=== PATIENT | male | born 1940 | race Caucasian/White ===

== ENCOUNTER 2021-10-04 11:22 | Emergency (ER) | payer OTHER ==
[~2021-10-04] VITALS: Ht 167.6 cm; Wt 60.3 kg
[~2021-10-04 11:22] MED LIST: ATEN25 PO; BLOOD PRESSURE MED; FAMO20 PO; HYDACE5 PO; META800 PO
[2021-10-04 12:25] LABS: BASOPHILS ABSOLUTE AUTO 0.05 K/mm3 (0.00-0.23); BASOPHILS PERCENT AUTO 1 % (0-2); EOSINOPHILS ABSOLUTE AUTO 0.83 K/mm3 (0.00-0.68); EOSINOPHILS PERCENT AUTO 8 % (0-6); Hematocrit 37.9 % (37.0-53.0); Hemoglobin 12.6 g/dL (13.5-17.5); IMMATURE GRAN ABSOLUTE AUTO 0.03 K/mm3 (0.00-0.10); IMMATURE GRAN PERCENT AUTO 0 % (0-1); LYMPHOCYTES ABSOLUTE AUTO 2.55 K/mm3 (0.84-5.20); LYMPHOCYTES PERCENT AUTO 24 % (21-46); MONOCYTES ABSOLUTE AUTO 0.68 K/mm3 (0.16-1.47); MONOCYTES PERCENT AUTO 6 % (4-13); Mean Corpuscular HGB 32.6 pg (26.0-34.0); Mean Corpuscular HGB Conc 33.2 g/dL (31.5-36.5); Mean Corpuscular Volume 98 fL (80-100); Mean Platelet Volume 9.7 fL (9.1-12.4); NEUTROPHILS ABSOLUTE AUTO 6.52 K/mm3 (1.96-9.15); NEUTROPHILS PERCENT AUTO 61 % (41-73); Platelet Count 241 K/mm3 (150-400); RDW Coefficient Variation 15.5 % (11.7-14.2); RDW Standard Deviation 55.7 fL (35.1-46.3); Red Blood Cell Count 3.87 M/mm3 (4.30-5.90); White Blood Cell Count 10.66 K/mm3 (4.00-11.30)
[2021-10-04 12:58] LABS: Albumin, Blood 2.9 g/dL (3.4-5.0); Albumin/Globulin Ratio 0.7 (0.8-1.8); Bilirubin, Total 1.2 mg/dL (0.1-1.0); Bun/Creatinine Ratio 22.1 (12.0-20.0); Calcium, Blood 7.6 mg/dL (8.5-10.1); Creatinine, Blood 1.45 mg/dL (0.60-1.20); Globulin, Blood 4.1 g/dL (2.2-4.0)
[2021-10-04] MEDS ORDERED: METO100ER PO (13:08)
[2021-10-04] MEDS ORDERED: LOSA50 PO (13:08)
[2021-10-04] MEDS ORDERED: Simvastatin20 MG PO (13:08)
[2021-10-04] MEDS ORDERED: METO10 (13:10)
[2021-10-04] MEDS ORDERED: CABOMETYX40 MG PO (13:11)
[2021-10-04] MEDS ORDERED: ASPI81CH PO (13:13)
== END 2021-10-04 17:05 | disposition home or self-care (01) ==
LOC: ER 11:22
PROVIDERS: Physician Assistant
DX: E83.42 Hypomagnesemia (principal); K52.1 Toxic gastroenteritis and colitis; E83.51 Hypocalcemia; I10 Essential (primary) hypertension; E78.00 Pure hypercholesterolemia, unspecified; Z79.899 Other long term (current) drug therapy; Z79.82 Long term (current) use of aspirin
CPT/HCPCS: 36415; 80053; 83735; 85025; J0610; J3475; J7030

== ENCOUNTER 2021-10-10 08:54 | Emergency (ER) | payer OTHER ==
[~2021-10-10] VITALS: Ht 167.6 cm; Wt 60.3 kg
[~2021-10-10 08:54] MED LIST changes: +ASPI81CH PO; +CABOMETYX40 MG PO; +LOSA50 PO; +METO10; +METO100ER PO; +Simvastatin20 MG PO
[2021-10-10 10:10] LABS: BASOPHILS ABSOLUTE AUTO 0.04 K/mm3 (0.00-0.23); BASOPHILS PERCENT AUTO 0 % (0-2); EOSINOPHILS ABSOLUTE AUTO 0.67 K/mm3 (0.00-0.68); EOSINOPHILS PERCENT AUTO 6 % (0-6); Hematocrit 42.4 % (37.0-53.0); IMMATURE GRAN ABSOLUTE AUTO 0.03 K/mm3 (0.00-0.10); IMMATURE GRAN PERCENT AUTO 0 % (0-1); LYMPHOCYTES ABSOLUTE AUTO 1.92 K/mm3 (0.84-5.20); LYMPHOCYTES PERCENT AUTO 19 % (21-46); MONOCYTES ABSOLUTE AUTO 0.68 K/mm3 (0.16-1.47); MONOCYTES PERCENT AUTO 7 % (4-13); Mean Corpuscular HGB 32.1 pg (26.0-34.0); Mean Corpuscular Volume 97 fL (80-100); Mean Platelet Volume 9.7 fL (9.1-12.4); NEUTROPHILS ABSOLUTE AUTO 7.05 K/mm3 (1.96-9.15); NEUTROPHILS PERCENT AUTO 68 % (41-73); Platelet Count 262 K/mm3 (150-400); RDW Coefficient Variation 15.7 % (11.7-14.2); RDW Standard Deviation 56.2 fL (35.1-46.3); Red Blood Cell Count 4.36 M/mm3 (4.30-5.90); White Blood Cell Count 10.39 K/mm3 (4.00-11.30)
[2021-10-10 10:18] LABS: Albumin, Blood 3.5 g/dL (3.4-5.0); Albumin/Globulin Ratio 0.8 (0.8-1.8); Bilirubin, Total 1.2 mg/dL (0.1-1.0); Bun/Creatinine Ratio 16.7 (12.0-20.0); Calcium, Blood 9.1 mg/dL (8.5-10.1); Creatinine, Blood 1.5 mg/dL (0.60-1.20); Globulin, Blood 4.4 g/dL (2.2-4.0); Magnesium, Blood 1.4 mg/dL (1.6-2.4); Potassium, Blood 4.1 mmol/L (3.5-5.5); Total Protein, Blood 7.9 g/dL (6.4-8.2)
[2021-10-10] MEDS ORDERED: DIPATR PO (11:05)
== END 2021-10-10 11:56 | disposition home or self-care (01) ==
LOC: ER 08:54
PROVIDERS: Emergency Medicine
DX: K52.1 Toxic gastroenteritis and colitis (principal); T45.1X5A Adverse effect of antineoplastic and immunosuppressive drugs, initial encounter; C64.9 Malignant neoplasm of unspecified kidney, except renal pelvis; E83.42 Hypomagnesemia; I10 Essential (primary) hypertension; Z79.82 Long term (current) use of aspirin; Z79.899 Other long term (current) drug therapy; Y92.9 Unspecified place or not applicable
CPT/HCPCS: 36415; 74177; 80053; 83735; 85025; J3475; J7030; Q9967

== ENCOUNTER 2023-05-10 12:41 | Emergency (ER) | payer OTHER ==
[~2023-05-10] VITALS: Ht 167.6 cm; Wt 61.7 kg
[~2023-05-10 12:41] MED LIST changes: +DIPATR PO
[2023-05-10 13:52] LABS: BASOPHILS ABSOLUTE AUTO 0.03 K/mm3 (0.00-0.23); BASOPHILS PERCENT AUTO 0 % (0-2); EOSINOPHILS ABSOLUTE AUTO 0.49 K/mm3 (0.00-0.68); EOSINOPHILS PERCENT AUTO 7 % (0-6); Hematocrit 47.2 % (37.0-53.0); Hemoglobin 15.3 g/dL (13.5-17.5); IMMATURE GRAN ABSOLUTE AUTO 0.01 K/mm3 (0.00-0.10); IMMATURE GRAN PERCENT AUTO 0 % (0-1); LYMPHOCYTES ABSOLUTE AUTO 1.05 K/mm3 (0.84-5.20); LYMPHOCYTES PERCENT AUTO 14 % (21-46); MONOCYTES ABSOLUTE AUTO 0.73 K/mm3 (0.16-1.47); MONOCYTES PERCENT AUTO 10 % (4-13); Mean Corpuscular HGB 30.5 pg (26.0-34.0); Mean Corpuscular HGB Conc 32.4 g/dL (31.5-36.5); Mean Corpuscular Volume 94 fL (80-100); Mean Platelet Volume 10.1 fL (9.1-12.4); NEUTROPHILS ABSOLUTE AUTO 5.26 K/mm3 (1.96-9.15); NEUTROPHILS PERCENT AUTO 70 % (41-73); Platelet Count 188 K/mm3 (150-400); RDW Coefficient Variation 13.9 % (11.7-14.2); Red Blood Cell Count 5.01 M/mm3 (4.30-5.90); White Blood Cell Count 7.57 K/mm3 (4.00-11.30)
[2023-05-10 14:11] LABS: Albumin, Blood 3.2 g/dL (3.4-5.0); Albumin/Globulin Ratio 0.9 (0.8-1.8); Bilirubin, Total 0.9 mg/dL (0.1-1.0); Bun/Creatinine Ratio 24.3 (12.0-20.0); Calcium, Blood 8.6 mg/dL (8.5-10.1); Creatinine, Blood 1.36 mg/dL (0.60-1.20); Globulin, Blood 3.7 g/dL (2.2-4.0); Magnesium, Blood 1.3 mg/dL (1.6-2.4); Phosphorus, Blood 3.3 mg/dL (2.5-4.9); Potassium, Blood 4.4 mmol/L (3.5-5.5); Total Protein, Blood 6.9 g/dL (6.4-8.2)
[2023-05-10] MEDS ORDERED: LOSA50 (14:47)
[2023-05-10] MEDS ORDERED: NEBIVOLOL HCL20 MG (14:47)
[2023-05-10] MEDS ORDERED: AMLODIPINE BESYL5 MG PO (14:47)
[2023-05-10] MEDS ORDERED: ZYRTEC10 M2 PO (14:48)
[2023-05-10] MEDS ORDERED: FOTIVDA PO (14:48)
[2023-05-10 16:44] LABS: Source, Urine Clean Catch
[2023-05-10 16:48] LABS: Appearance, Urine Clear (Clear); Bilirubin, Urine Neg (Neg); Blood, Urine 3+ (Neg); Color, Urine Yellow (P-Yellow); Glucose Qualitative, Urine Neg (Neg); Ketones, Urine Neg (Neg); Leukocyte Esterase, Urine Neg (Neg); Nitrite, Urine Neg (Neg); Protein, Urine 3+ (Neg); Urobilinogen, Urine NORM (Normal)
[2023-05-10 17:01] LABS: Bacteria Few /hpf; Granular Casts 0-2 /lpf (0); Red Blood Cells, Urine 0-2 /hpf (0-2); Squamous Epithelial Cells Not Seen /hpf (Few); White Blood Cells, Urine 0-2 /hpf (0-5)
[2023-05-10 17:22] LABS: Adenovirus Not Detected (NOT DETECT); Bordetella pertussis Not Detected (NOT DETECT); Chlamydophila pneumoniae Not Detected (NOT DETECT); Coronavirus 229E Not Detected (NOT DETECT); Coronavirus HKU1 Not Detected (NOT DETECT); Coronavirus NL63 Not Detected (NOT DETECT); Coronavirus OC43 Not Detected (NOT DETECT); Human Metapneumovirus Not Detected (NOT DETECT); Human Rhinovirus/Enterovirus Not Detected (NOT DETECT); Influenza A/2009-H1 Not Detected (NOT DETECT); Influenza A/H1 Not Detected (NOT DETECT); Influenza A/H3 Not Detected (NOT DETECT); Influenza B Not Detected (NOT DETECT); Mycoplasma pneumoniae Not Detected (NOT DETECT); Parainfluenza Virus 1 Not Detected (NOT DETECT); Parainfluenza Virus 2 Not Detected (NOT DETECT); Parainfluenza Virus 3 Not Detected (NOT DETECT); Parainfluenza Virus 4 Not Detected (NOT DETECT); Respiratory Syncytial Virus Not Detected (NOT DETECT); SARS-Cov-2 (COVID-19), BioFire Not Detected (NOT DETECT)
[2023-05-10 18:10] VITALS: BP 158/86
== END 2023-05-10 18:09 | disposition home or self-care (01) ==
LOC: ER 12:41
PROVIDERS: Physician Assistant; Student in an Organized Health Care Education/Training Program
DX: R53.83 Other fatigue (principal); Z79.899 Other long term (current) drug therapy; Z79.82 Long term (current) use of aspirin; E78.00 Pure hypercholesterolemia, unspecified; I10 Essential (primary) hypertension
CPT/HCPCS: 0202U; 71046; 80053; 81001; 83735; 84100; 85025; 96360; 99285-25; J7030

== ENCOUNTER → 2023-07-24 | Outpatient (CLI) | payer OTHER ==
[~2023-07-24] MED LIST changes: +AMLODIPINE BESYL5 MG PO; +FOTIVDA PO; +LOSA50; +NEBIVOLOL HCL20 MG; +ZYRTEC10 M2 PO
[2023-07-24 15:26] LABS: Source, Urine Clean Catch
[2023-07-24 19:36] LABS: Appearance, Urine Clear (Clear); Bilirubin, Urine Neg (Neg); Blood, Urine 3+ (Neg); Color, Urine Yellow (P-Yellow); Glucose Qualitative, Urine Neg (Neg); Ketones, Urine Neg (Neg); Leukocyte Esterase, Urine Neg (Neg); Nitrite, Urine Neg (Neg); Protein, Urine 3+ (Neg); Urobilinogen, Urine NORM (Normal)
[2023-07-24 19:47] LABS: Bacteria Rare /hpf; Squamous Epithelial Cells Not Seen /hpf (Few); White Blood Cells, Urine 0-2 /hpf (0-5)
[2023-07-24 20:08] LABS: Creatinine, Urine Random 79.5 mg/dL (27.00-270.00); Protein, Urine Random 125.5 mg/dL (0.0-11.9); Protein/Creat Ratio, Ur Random 1.6
== END ==
LOC: LAB SHORT 07:30 → LAB 07:30
PROVIDERS: Hospitalist
DX: I10 Essential (primary) hypertension (principal)
CPT/HCPCS: 81001; 82570; 84156

== ENCOUNTER 2024-02-24 12:42 | Emergency (ER) | payer OTHER ==
[~2024-02-24] VITALS: Ht 167.6 cm; Wt 59.0 kg
[~2024-02-24 12:42] MED LIST changes: +AFINITOR5 MG PO; +FISH OIL 1,0001 EA10 PO; +OMEP20ER PO; +ONDA4ODT MM; +VITAMIN D350 MC3 PO
[2024-02-24 13:42] LABS: BASOPHILS ABSOLUTE AUTO 0.02 K/mm3 (0.00-0.23); BASOPHILS PERCENT AUTO 0 % (0-2); EOSINOPHILS ABSOLUTE AUTO 0.13 K/mm3 (0.00-0.68); EOSINOPHILS PERCENT AUTO 2 % (0-6); Hemoglobin 7.6 g/dL (13.5-17.5); IMMATURE GRAN ABSOLUTE AUTO 0.02 K/mm3 (0.00-0.10); IMMATURE GRAN PERCENT AUTO 0 % (0-1); LYMPHOCYTES ABSOLUTE AUTO 0.63 K/mm3 (0.84-5.20); LYMPHOCYTES PERCENT AUTO 10 % (21-46); MONOCYTES ABSOLUTE AUTO 0.53 K/mm3 (0.16-1.47); MONOCYTES PERCENT AUTO 9 % (4-13); Mean Corpuscular HGB 25.4 pg (26.0-34.0); Mean Corpuscular HGB Conc 31.7 g/dL (31.5-36.5); Mean Corpuscular Volume 80 fL (80-100); Mean Platelet Volume 9.1 fL (9.1-12.4); NEUTROPHILS ABSOLUTE AUTO 4.85 K/mm3 (1.96-9.15); NEUTROPHILS PERCENT AUTO 79 % (41-73); Platelet Count 248 K/mm3 (150-400); RDW Standard Deviation 44.3 fL (35.1-46.3); Red Blood Cell Count 2.99 M/mm3 (4.30-5.90); White Blood Cell Count 6.18 K/mm3 (4.00-11.30)
[2024-02-24 14:08] LABS: Albumin, Blood 2.9 g/dL (3.4-5.0); Albumin/Globulin Ratio 0.7 (0.8-1.8); Bilirubin, Total 0.4 mg/dL (0.1-1.0); Bun/Creatinine Ratio 17.8 (12.0-20.0); Calcium, Blood 8.4 mg/dL (8.5-10.1); Creatinine, Blood 1.69 mg/dL (0.60-1.20); Globulin, Blood 4.1 g/dL (2.2-4.0); Potassium, Blood 3.7 mmol/L (3.5-5.5)
[2024-02-24] MEDS ORDERED: NS 500 ML IV SCH (15:45)
[2024-02-24] MEDS ORDERED: DICY20 PO (17:55)
[2024-02-24] MEDS ORDERED: SENN187 PO (17:55)
[2024-02-24] MEDS ORDERED: AMOCLA875 PO (18:29)
[2024-02-24 18:30] VITALS: BP 140/81
== END 2024-02-24 18:40 | disposition home or self-care (01) ==
LOC: ER 12:42
PROVIDERS: Physician Assistant
DX: K59.00 Constipation, unspecified (principal); D64.9 Anemia, unspecified; E78.00 Pure hypercholesterolemia, unspecified; I12.9 Hypertensive chronic kidney disease with stage 1 through stage 4 chronic kidney disease, or unspecified chronic kidney disease; N18.9 Chronic kidney disease, unspecified; Z85.53 Personal history of malignant neoplasm of renal pelvis; Z79.899 Other long term (current) drug therapy; Z79.82 Long term (current) use of aspirin; Z88.8 Allergy status to other drugs, medicaments and biological substances
CPT/HCPCS: 74177; 80053; 85025; 99284-25; J7030; Q9967

== ENCOUNTER 2024-03-20 01:53 | Day surgery (SDC) | payer OTHER ==
[2024-03-20] VITALS (7 sets, daily range): BP systolic 113–138; BP diastolic 49–62
[~2024-03-20 01:53] MED LIST changes: +AMOCLA875 PO; +DICY20 PO; +DULCOLAX400 MG/5 M PO; +SENN187 PO
[2024-03-20] MEDS ORDERED: NS 250 ML IV SCH (06:50)
== END 2024-03-20 17:08 | disposition home or self-care (01) ==
LOC: ATC 01:53 → EDSTATUS 13:30 → ATC 13:30
DX: C64.1 Malignant neoplasm of right kidney, except renal pelvis (principal); J44.9 Chronic obstructive pulmonary disease, unspecified; E78.5 Hyperlipidemia, unspecified; Z88.8 Allergy status to other drugs, medicaments and biological substances; Z95.1 Presence of aortocoronary bypass graft; Z79.899 Other long term (current) drug therapy
CPT/HCPCS: 36415; 36430; 86850; 86900; 86901; 86923; J7050; P9016

== ENCOUNTER 2024-03-28 06:15 | Inpatient (IN) | payer OTHER ==
[2024-03-28] VITALS (19 sets, daily range): BP systolic 104–151; BP diastolic 56–90
[~2024-03-28] VITALS: Ht 170.2 cm; Wt 54.7 kg
[~2024-03-28 06:15] MED LIST changes: +Bupivacaine HCl 0.25% 30 ML Injection ONE; +EpiNEPhrine 1 MG/1 ML 1ML Vial ONE
[2024-03-28] MEDS ORDERED: CeFAZolin Sodium 2,000 MG in NS 100 ML IV SCH ×2 (06:45→16:00)
[2024-03-28] MEDS ORDERED: Ropivacaine 0.5% HCl/Pf 123.125 MG,EPINEPHrine HCL 0.25 MG,Ketorolac Tromethamine 15 MG... INFIL SCH (06:45)
[2024-03-28] MEDS ORDERED: Tranexamic Acid 100 ML IV SCH (06:45)
[2024-03-28] MEDS ORDERED: OxyCODONE HCL 10 MG TABCR PO SCH (06:45)
[2024-03-28] MEDS ORDERED: Lactated Ringer's 1,000 ML IV SCH ×2 (06:45→07:55)
[2024-03-28] MEDS ORDERED: Chlorhexidine Mouth Care 15 ML UDC MT SCH (06:45)
[2024-03-28] MEDS ORDERED: Acetaminophen 500 MG Tab PO SCH ×2 (06:45→16:00)
[2024-03-28] MEDS ORDERED: Midazolam HCl 1MG / ML 2ML Vial ONE (06:59)
[2024-03-28] MEDS ORDERED: FentaNYL Citrate 50 MCG/ML 2 ML Injection ONE ×2 (06:59→07:25)
[2024-03-28] MEDS ORDERED: propofoL 20 ML IV ONE (07:25)
--- NOTE | 2024-03-28 07:39 | NUR ---
History, Chart, Medications and Allergies reviewed before start of procedure. Pre-Op teaching done. Pt verbalizes understanding. Patient confirms NPO status and agrees with scheduled surgery. PT STATED HE LEFT DENTURES AT HOME. PT GAVE GLASSES TO AT BS BEFORE HEADING BACK TO THE OR.
[2024-03-28] MEDS ORDERED: DiphenhydrAMINE HCL 25 MG Cap PO PRN (07:55)
[2024-03-28] MEDS ORDERED: Magnesium Hydroxide Conc 10 ML UDC PO PRN (07:55)
[2024-03-28] MEDS ORDERED: HYDROmorphone HCl/Pf 1MG SYR IV PRN (07:55)
[2024-03-28] MEDS ORDERED: Prochlorperazine Edisylate 10 mg Vial IV PRN (08:00)
[2024-03-28] MEDS ORDERED: Bisacodyl 10 MG Supp PR PRN (08:00)
[2024-03-28] MEDS ORDERED: Promethazine HCl 25 MG Tab PO PRN (08:00)
[2024-03-28] MEDS ORDERED: OxyCODONE HCL 5 MG TAB PO PRN ×2 (08:00→08:05)
[2024-03-28] MEDS ORDERED: FLU VACC TS2024-25(6MOS UP)/PF 45 MCG/0.5 ML SYRINGE IM SCH (08:00)
[2024-03-28] MEDS ORDERED: Ondansetron HCl 2 MG / ML 2ML Vial IV PRN (08:05)
[2024-03-28] MEDS ORDERED: Metoclopramide HCl 5MG / ML 2ML Vial IV PRN (08:05)
[2024-03-28] MEDS ORDERED: Phenylephrine HCl 10mg/ml 1 ml Vial ONE (08:07)
[2024-03-28] MEDS ORDERED: Glycopyrrolate 0.2 MG/ML 5ML VIAL ONE (08:31)
[2024-03-28] MEDS ORDERED: Loratadine 10 MG Tab PO SCH (09:00)
[2024-03-28] MEDS ORDERED: Dexamethasone Sod Phos 10 MG/ML 1ML VIAL ONE (10:00)
[2024-03-28] MEDS ORDERED: Metoclopramide HCl 5MG / ML 2ML Vial ONE ×2 (10:00→11:05)
[2024-03-28] MEDS ORDERED: Ketorolac Tromethamine 30mg Vial ONE (11:10)
[2024-03-28] MEDS ORDERED: Ketorolac Tromethamine 15mg Vial IV SCH (12:00)
--- NOTE | 2024-03-28 18:19 | NUR ---
SHIFT SUMMARY POD 0 L TOTAL SHOULDER. DRESSING C/D/I. PT STATES THAT FEELING IS SLOWLY RETURNING. CAP REFILL <3 SEC, FINGERS WARM, PPP. VSS. EATING AND DRINKING WITHOUT DIFFICULTY. STILL WAITING FOR FIRST POST OP VOID AT THIS TIME. PT REPORTS THAT HE HAS MINIMAL PAIN. SPLINT IN PLACE. CALL LIGHT WITHIN REACH. BED IN LOWEST POSITION.
[2024-03-28] MEDS ORDERED: Docusate Sodium 100 MG Cap PO SCH (21:00)
[2024-03-29 03:37] VITALS: BP 135/70
[2024-03-29 05:21] LABS: BASOPHILS ABSOLUTE AUTO 0.02 K/mm3 (0.00-0.23); BASOPHILS PERCENT AUTO 0 % (0-2); EOSINOPHILS PERCENT AUTO 0 % (0-6); Hematocrit 32.8 % (37.0-53.0); Hemoglobin 10.2 g/dL (13.5-17.5); IMMATURE GRAN ABSOLUTE AUTO 0.06 K/mm3 (0.00-0.10); IMMATURE GRAN PERCENT AUTO 0 % (0-1); LYMPHOCYTES ABSOLUTE AUTO 0.51 K/mm3 (0.84-5.20); LYMPHOCYTES PERCENT AUTO 4 % (21-46); MONOCYTES ABSOLUTE AUTO 0.85 K/mm3 (0.16-1.47); MONOCYTES PERCENT AUTO 6 % (4-13); Mean Corpuscular HGB 26.2 pg (26.0-34.0); Mean Corpuscular HGB Conc 31.1 g/dL (31.5-36.5); Mean Corpuscular Volume 84 fL (80-100); Mean Platelet Volume 8.8 fL (9.1-12.4); NEUTROPHILS ABSOLUTE AUTO 12.67 K/mm3 (1.96-9.15); NEUTROPHILS PERCENT AUTO 90 % (41-73); Platelet Count 302 K/mm3 (150-400); RDW Coefficient Variation 17.9 % (11.7-14.2); RDW Standard Deviation 54.9 fL (35.1-46.3); Red Blood Cell Count 3.89 M/mm3 (4.30-5.90); White Blood Cell Count 14.11 K/mm3 (4.00-11.30)
--- NOTE | 2024-03-29 05:21 | NUR ---
SHIFT SUMMARY POD 1 L TSA PT RESTLESS DURING THE SHIFT. PAIN MANAGED PER EMAR. TOLERATING PO INTAKE. VOIDING. PT IS 1P SBA. L ARM IS IN IMMOBILIZER. DENIES N/T TO THE LUE. ABLE TO WIGGLE FINGERS. INSICION TO L SHOULDER IS C/D/I. VSS. NO OTHER CONCERNS AT THIS TIME, CALL LIGHT WITHIN REACH
[2024-03-29] MEDS ORDERED: Omeprazole 20 MG CapCR PO SCH (06:00)
[2024-03-29 06:01] LABS: Bun/Creatinine Ratio 17.2 (12.0-20.0); Calcium, Blood 9.2 mg/dL (8.5-10.1); Creatinine, Blood 2.04 mg/dL (0.60-1.20); Magnesium, Blood 2.4 mg/dL (1.6-2.4); Potassium, Blood 5.6 mmol/L (3.5-5.5)
[2024-03-29 07:16] VITALS: BP 138/66
[2024-03-29] MEDS ORDERED: Carvedilol 25 MG Tab PO SCH (08:00)
[2024-03-29] MEDS ORDERED: AmLODIPine Besylate 5 MG Tab PO SCH (09:00)
[2024-03-29] MEDS ORDERED: Losartan Potassium 50 MG Tab PO SCH (09:00)
== END 2024-03-29 10:53 | disposition home or self-care (01) | DRG 483 ==
LOC: ORSCMMR 06:15 → SURS 07:29 → ORSCMMR 07:30 → ORD 07:30 → SURS 11:07
PROVIDERS: ADMIT Orthopaedic Surgery
PROC: 0RRK0JZ Replacement of Left Shoulder Joint with Synthetic Substitute, Open Approach (ICD-10-PCS; principal; 2024-03-28 07:30)
DX: M12.812 Other specific arthropathies, not elsewhere classified, left shoulder (principal); D63.8 Anemia in other chronic diseases classified elsewhere; I25.2 Old myocardial infarction; J44.9 Chronic obstructive pulmonary disease, unspecified; E78.5 Hyperlipidemia, unspecified; I10 Essential (primary) hypertension; Z85.46 Personal history of malignant neoplasm of prostate; Z85.528 Personal history of other malignant neoplasm of kidney; Z96.1 Presence of intraocular lens; Z98.42 Cataract extraction status, left eye; Z98.41 Cataract extraction status, right eye; Z95.5 Presence of coronary angioplasty implant and graft; Z90.89 Acquired absence of other organs; Z98.52 Vasectomy status; Z98.890 Other specified postprocedural states; Z87.891 Personal history of nicotine dependence; Z79.82 Long term (current) use of aspirin; Z79.899 Other long term (current) drug therapy; Z79.891 Long term (current) use of opiate analgesic
CPT/HCPCS: 36415; 73030; 80048; 83735; 85025; 86850; 86870; 86900; 86901; 86922; 97110; 97161; 97165; 97530; 97535; A9270; J0171; J0690; J0735; J1100; J1885; J2250; J2371; J2405; J2704; J2765; J2795; J3010; J7120

== ENCOUNTER 2024-04-03 16:16 | Emergency (ER) | payer OTHER ==
[~2024-04-03] VITALS: Ht 170.2 cm; Wt 56.7 kg
[~2024-04-03 16:16] MED LIST changes: -Bupivacaine HCl 0.25% 30 ML Injection ONE; -EpiNEPhrine 1 MG/1 ML 1ML Vial ONE
[2024-04-03 16:25] VITALS: BP 141/80
[2024-04-03] MEDS ORDERED: Magnesium Citrate 300 ML BTL PO ONE (16:30)
== END 2024-04-03 17:10 | disposition left against medical advice (07) ==
LOC: ER 16:16
DX: K59.00 Constipation, unspecified (principal); R11.2 Nausea with vomiting, unspecified; Z53.29 Procedure and treatment not carried out because of patient's decision for other reasons
CPT/HCPCS: 99281; A9270

== ENCOUNTER → 2024-06-17 | Outpatient (CLI) | payer OTHER ==
[2024-06-17 13:08] LABS: Source, Urine Clean Catch
[2024-06-17 19:06] LABS: Appearance, Urine Clear (Clear); Bilirubin, Urine Neg (Neg); Blood, Urine 3+ (Neg); Color, Urine Yellow (P-Yellow); Glucose Qualitative, Urine Neg (Neg); Ketones, Urine Neg (Neg); Leukocyte Esterase, Urine Neg (Neg); Nitrite, Urine Neg (Neg); Protein, Urine 2+ (Neg); Urobilinogen, Urine NORM (Normal); pH, Urine 6.5 (5.0-8.0)
[2024-06-17 19:15] LABS: White Blood Cells, Urine 0-2 /hpf (0-5)
[2024-06-17 19:16] LABS: Bacteria Few /hpf; Squamous Epithelial Cells Not Seen /hpf (Few)
[2024-06-17 21:22] LABS: Protein, Urine Random 64.5 mg/dL (0.0-11.9); Protein/Creat Ratio, Ur Random 0.6
== END ==
LOC: LAB SHORT 10:00 → LAB 10:00
PROVIDERS: Hospitalist
DX: N18.32 Chronic kidney disease, stage 3b (principal)
CPT/HCPCS: 81001; 82570; 84156

== ENCOUNTER 2024-10-15 02:10 | Day surgery (SDC) | payer OTHER ==
[2024-10-13 12:52] LABS: BASOPHILS ABSOLUTE AUTO 0.04 K/mm3 (0.00-0.23); BASOPHILS PERCENT AUTO 1 % (0-2); EOSINOPHILS ABSOLUTE AUTO 0.36 K/mm3 (0.00-0.68); EOSINOPHILS PERCENT AUTO 5 % (0-6); Hematocrit 26.1 % (37.0-53.0); Hemoglobin 8.3 g/dL (13.5-17.5); IMMATURE GRAN ABSOLUTE AUTO 0.02 K/mm3 (0.00-0.10); IMMATURE GRAN PERCENT AUTO 0 % (0-1); LYMPHOCYTES ABSOLUTE AUTO 1.14 K/mm3 (0.84-5.20); LYMPHOCYTES PERCENT AUTO 16 % (21-46); MONOCYTES ABSOLUTE AUTO 0.89 K/mm3 (0.16-1.47); MONOCYTES PERCENT AUTO 12 % (4-13); Mean Corpuscular HGB 31.3 pg (26.0-34.0); Mean Corpuscular HGB Conc 31.8 g/dL (31.5-36.5); Mean Corpuscular Volume 99 fL (80-100); Mean Platelet Volume 9.5 fL (9.1-12.4); NEUTROPHILS ABSOLUTE AUTO 4.79 K/mm3 (1.96-9.15); NEUTROPHILS PERCENT AUTO 66 % (41-73); Platelet Count 245 K/mm3 (150-400); RDW Coefficient Variation 14.1 % (11.7-14.2); RDW Standard Deviation 50.7 fL (35.1-46.3); Red Blood Cell Count 2.65 M/mm3 (4.30-5.90); White Blood Cell Count 7.24 K/mm3 (4.00-11.30)
[2024-10-13 13:51] LABS: Albumin, Blood 3.2 g/dL (3.4-5.0); Albumin/Globulin Ratio 0.9 (0.8-1.8); Bilirubin, Total 0.4 mg/dL (0.1-1.0); Bun/Creatinine Ratio 17.7 (12.0-20.0); Calcium, Blood 8.6 mg/dL (8.5-10.1); Creatinine, Blood 1.64 mg/dL (0.60-1.20); Globulin, Blood 3.4 g/dL (2.2-4.0); Potassium, Blood 4.2 mmol/L (3.5-5.5); Total Protein, Blood 6.6 g/dL (6.4-8.2)
[2024-10-15] VITALS (7 sets, daily range): BP systolic 116–151; BP diastolic 50–75
[2024-10-15] MEDS ORDERED: NS 250 ML IV SCH (06:40)
== END 2024-10-15 17:20 | disposition home or self-care (01) ==
LOC: ATC 02:10
PROVIDERS: Internal Medicine Hematology & Oncology
DX: C64.1 Malignant neoplasm of right kidney, except renal pelvis (principal); D63.0 Anemia in neoplastic disease; C78.7 Secondary malignant neoplasm of liver and intrahepatic bile duct; C78.00 Secondary malignant neoplasm of unspecified lung; J44.9 Chronic obstructive pulmonary disease, unspecified; I25.2 Old myocardial infarction; E78.5 Hyperlipidemia, unspecified; I12.9 Hypertensive chronic kidney disease with stage 1 through stage 4 chronic kidney disease, or unspecified chronic kidney disease; N18.9 Chronic kidney disease, unspecified; Z87.891 Personal history of nicotine dependence; Z79.82 Long term (current) use of aspirin; Z79.899 Other long term (current) drug therapy; Z88.8 Allergy status to other drugs, medicaments and biological substances; Z95.1 Presence of aortocoronary bypass graft; Z95.5 Presence of coronary angioplasty implant and graft
CPT/HCPCS: 36415; 36430; 80053; 85025; 86850; 86870; 86900; 86901; 86922; J7050; P9016